=== PATIENT | female | born 1985 | race Caucasian/White ===

== ENCOUNTER → 2018-07-18 15:49 | Outpatient (CLI) | payer OTHER, MEDICAID, SELFPAY ==
[2018-07-18 17:53] LABS: Hematocrit 42.4 % (37-47); Hemoglobin 13.7 g/dl (12.0-15.0); Mean Corp Hgb Conc 32.3 g/gl (32-36); Mean Corpuscular Hgb 29.5 pg (27.0-32.0); Mean Corpuscular Volume 91.4 fL (81-99); Mean Platelet Vol. 10.2 fl (6.2-12.0); Platelet Count 249 K/mm3 (150-450); RBC Distribution Width CV 13.2 % (11.6-14.6); RBC Distribution Width SD 43.7 fl (35.1-43.9); Red Blood Count 4.64 M/mm3 (4.2-5.4); White Blood Count 6.8 K/mm3 (4.4-11.0)
[2018-07-18 18:19] LABS: Scan Indicated on CBC? Y/N NO
== END ==
PROVIDERS: Visit Provider Obstetrics & Gynecology
DX: N92.6 Irregular menstruation, unspecified (principal)
CPT/HCPCS: 85027

== ENCOUNTER 2019-12-05 22:45 | Outpatient (CLI) | payer MEDICAID, SELFPAY ==
[2019-12-05 23:10] VITALS: BMI 33.7
[2019-12-05 23:20] VITALS: BP 135/81; PULSE 80; TEMP 36.2; O2SAT 98
[2019-12-05 23:53] LABS: ROM Internal Control Test YES-OK TO RESULT pt. (Internal QC); ROM Patient Test Negative (Negative)
--- NOTE | 2019-12-07 07:55 | OB.TRI.NOTE ---
- Problem List (1) 38 weeks gestation of Status: Acute (2) Vaginal discharge during Status: Acute History of Present Illness Date of Service: 12/05/19 Reason For Visit: RULE OUT LABOR Date of Service: 12/05/19 Final NEEMA: 12/13/19 Gestational age: 39 Weeks and 1 Days History of Present Illness: Called in with leaking of fluid and contractions. No bleeding. Good movement. Allergies No Known Allergies Allergy (Verified 12/05/19 23:14) Laboratory Studies: Laboratory Tests 12/05/19 Range/Units 23:10 Vag Amniotic Fld Detect Negative (Negative) Physical Exam Vitals: Vital Signs Temp Pulse BP Pulse Ox 97.1 F L 80 135/81 H 98 12/05/19 23:20 12/05/19 23:20 12/05/19 23:20 12/05/19 23:20 NST - FHR Rate Baby A Baseline: 130 Variability:: Moderate Accelerations:: 15 x 15 Decelerations:: None NST Reactive:: Yes Uterine Activity:: Ctx q 4-5 min Impression/Plan NST reactive ROM negative Cervix unchanged after repeat exam Discharge home with return precautions
== END 2019-12-06 00:47 | disposition home or self-care (01) ==
LOC: WPOUT 22:56 → WP 22:57
PROVIDERS: Referring Provider Obstetrics & Gynecology; Visit Provider Obstetrics & Gynecology
DX: O26.893 Other specified pregnancy related conditions, third trimester (principal); N89.8 Other specified noninflammatory disorders of vagina; Z3A.38 38 weeks gestation of pregnancy
CPT/HCPCS: 84112

== ENCOUNTER → 2019-12-06 13:25 | Outpatient (CLI) | payer MEDICAID, SELFPAY ==
[2019-12-05 23:10] VITALS: BMI 33.7
== END ==
PROVIDERS: Referring Provider Obstetrics & Gynecology; Visit Provider Obstetrics & Gynecology
DX: Z11.59 Encounter for screening for other viral diseases (principal)
CPT/HCPCS: 87635; G2023; U0004

== ENCOUNTER 2019-12-10 07:00 | Inpatient (IN) | payer MEDICAID, SELFPAY ==
[2019-12-10] VITALS (37 sets, daily range): BP systolic 86–154; BP diastolic 48–101; PULSE 77–119; RESP 16–18; TEMP 36.1–36.4; O2SAT 93–100; BMI 34.0
[2019-12-10] MEDS: Lactated Ringers 1,000 ML 50 ML IV (08:00)
[2019-12-10] MEDS: Oxytocin 30 units/NS 500 ml 30 UNITS/500 ML IV.SOLN IV (08:15)
[2019-12-10 08:38] LABS: Absolute Lymphocyte Count 1.81 X10^3/uL (0.83-4.51); Absolute Neutrophil Count 8.9 X10^3/uL (2.0-7.7); Basophil# 0.05 X10^3/uL; Basophil% 0.4 % (0-1); Eosinophil# 0.11 X10^3/uL; Eosinophils% 0.9 % (0-5); Hematocrit 32.4 % (37-47); Hemoglobin 10.2 g/dL (12.0-15.0); Lymphocyte # 1.81 X10^3/ul (4.0); Lymphocyte % 15.2 % (19-41); Mean Corp Hgb Conc 31.5 g/dL (32-36); Mean Corpuscular Hgb 28.7 pg (27.0-32.0); Mean Corpuscular Volume 91.3 fL (81-99); Mean Platelet Vol. 9.7 fl (6.2-12.0); Monocyte# 0.86 X10^3/uL; Monocyte% 7.2 % (0-10); NRBC Flagged by Analyzer 0 % (0-5); Neutrophil # 8.92 X10^3/uL (2.7-7.7); Platelet Count 239 K/mm3 (150-450); RBC Distribution Width CV 14.7 % (11.6-14.6); RBC Distribution Width SD 48.8 fl (35.1-43.9); Red Blood Count 3.55 M/mm3 (4.2-5.4); White Blood Count 11.9 K/mm3 (4.4-11.0)
[2019-12-10] MEDS: Lactated Ringers 500 ML 999 ML IV (10:00)
--- NOTE | 2019-12-10 10:00 | HP.PCM_ITS ---
History Date of Admission: 12/10/19 Final NEEMA: 12/13/19 Gestational age: 39 Weeks and 4 Days History of this : This is a 34 year-old, G [], P [], at 39 weeks gestational age. Surgical History: Surgical History (This Medical Record has been edited. Action required.) Hx of appendectomy Z90.49 Hx of cholecystectomy Z90.49 S/P hernia surgery Z98.890, Z87.19 Allergies No Known Allergies Allergy (Verified 12/08/19 14:27) Home Medications: Home Medications Omeprazole 20 mg PO PRN PRN 12/10/19 Ondansetron [Zofran Odt] 4 mg PO Q8H PRN PRN 12/10/19 Smoking Status: Former smoker NST - FHR Rate Baby A Baseline: 145 Variability:: Moderate Accelerations:: 15 x 15 Decelerations:: Late Uterine Activity:: Irregular History Past Pregnancies: Past Pregnancies Delivery Date Name GA/ Weeks Outcome Route Wt Sex Labor Length Anesthesia Delivery Location Provider FOB Physical Exam Vitals: Vital Signs Pulse BP 82 138/84 H 12/10/19 08:44 12/10/19 08:44 General: Alert, Oriented x3 Abdomen: Soft, Non Tender, Non-Distended, Gravid Neurological: Cranial nerves II-XII grossly intact [employer]: Normal external genitalia Estimated gestational size: Appropriate for gestational size Presentation: Cephalic Cervix Dilation (cm): 4 - AROM clear fluid Station: -2 Effacement (%): 60 Assessment/Plan All Active Problems (This Medical Record has been edited. Action required.) 38 weeks gestation of (Acute) Vaginal discharge during (Acute) This is a 34 year-old, G4, P1203, at 39&4 weeks gestational age. Admit to L&D Induction for AMA & chtn - s/p AROM. On pitocin. Pain - epidural EFW - less than 4500g, patient with adequate pelvis GBS positive - pcn per protocol Routine care COVID negative
[2019-12-10] MEDS: fentaNYL-bupivacaine (epidural) 100 ML BAG EPIDURAL (10:43)
[2019-12-10] MEDS: Oxytocin 30 units/NS 500 ml 30 UNITS/500 ML IV.SOLN 334 UNITS IV (13:23)
--- NOTE | 2019-12-10 13:34 | PCM.OPRPT ---
Vaginal Delivery Maternal Presentation: Medically Indicated Induction Method of Induction: Pitocin, Amniotomy Medical Reason for Induction: Maternal Medical Condition: list: - Chronic hypertension Amniotic Membrane Rupture Type: Artificial Amniotic Fluid Description: Clear Final NEEMA: 12/13/19 Gestational age: 39 Weeks and 4 Days Date of Procedure: 12/10/19 Pre-Operative Diagnosis: (1) Chronic hypertension (2) AMA Post-Operative Diagnosis: Same Surgery/ Procedure Performed: Spontaneous Vaginal Delivery Type of Anesthesia: Epidural Description of Procedure: Patient prepped and draped in stirrups when C/C/+1. She pushed to deliver the head. Tight nuchal cord was clamped & cut. Head was gently guided to allow delivery of anterior and posterior shoulders. No excess traction placed on head. Body delivered and infant placed on maternal abdomen. Placenta delivered with gentle traction and good uterine tone obtained. Presentation: KUSHAL Placental Delivery Description: Spontaneous Placenta Disposition: [facility] Cord Vessel Description: 3 Vessels Cord Entanglement: Around neck x 1, tight Estimated Blood Loss: 250ml Infant A gender: Female - Atalie (1 minute): 8 (5 minute): 9 Episiotomy Description: None Laceration: None Medications given after delivery: IV Pitocin
[2019-12-10] MEDS: Ibuprofen 600 MG Tablet PO (17:29)
[2019-12-11] MEDS: Ibuprofen 600 MG Tablet PO ×3 (00:16→17:11)
[2019-12-11 00:17] VITALS: BP 146/94; PULSE 79; RESP 18; TEMP 36.2
[2019-12-11 04:00] VITALS: BP 124/79; PULSE 72; RESP 18; TEMP 36.3
[2019-12-11 08:12] VITALS: BP 138/89; PULSE 75; RESP 16; TEMP 36.4; O2SAT 98
--- NOTE | 2019-12-11 08:26 | PCM.PN.OB ---
Subjective: pain well controlled, average lochia, no N/V. Denies FERRARI or visual changes - Physical Exam Vitals/I&O's: Vital Signs Temp Pulse Resp BP Pulse Ox 97.6 F L 75 16 138/89 H 98 12/11/19 08:12 12/11/19 08:12 12/11/19 08:12 12/11/19 08:12 12/11/19 08:12 Oxygen Delivery Method Room Air Weight: 95.708 kg Body Mass Index (BMI) 34.0 Intake and Output for Last 24 Hours 12/09/19 12/10/19 12/11/19 23:59 23:59 23:59 Intake Total 2167.97 / 2167.97 Output Total 600 / 600 Balance 1567.97 / 1567.97 General: Alert, Cooperative, No apparent distress Laboratory Results 12/10/19 08:00: WBC 11.9 H, RBC 3.55 L, Hgb 10.2 L, Hct 32.4 L, MCV 91.3, MCH 28.7, MCHC 31.5 L, RDW Std Deviation 48.8 H, RDW Coeff of Kaylin 14.7 H, Plt Count 239, MPV 9.7, Immature Gran % (Auto) 1.300 H, Neut % (Auto) 75.0 H, Lymph % (Auto) 15.2 L, Cole % (Auto) 7.2, Eos % (Auto) 0.9, Baso % (Auto) 0.4, Absolute Neuts (auto) 8.9 H, Absolute Lymphs (auto) 1.81, Nucleated RBC % 0 12/10/19 08:00: Blood Type A POSITIVE, Antibody Screen NEGATIVE Current Medications Acetaminophen (Tylenol) 1,000 mg PO Q8H PRN PRN PRN Reason: Pain Score 1-3/10 Bisacodyl (Dulcolax) 10 mg RECTAL UD PRN PRN Reason: If no BM Dibucaine (Dibucaine) 1 applic TOPICAL TID PRN PRN; Protocol PRN Reason: Discomfort Hydrocortisone (Hytone) 1 applic TOPICAL TID PRN PRN; Protocol PRN Reason: Discomfort Ibuprofen (Motrin) 600 mg PO Q6H PRN PRN PRN Reason: Pain Score 1-3/10 Last Admin: 12/11/19 07:47 Dose: 600 mg Documented by: Methylergonovine Maleate (Methergine) 0.2 mg IM X1 PRN PRN Reason: Excess bleeding/uterine atony Ondansetron HCl (Zofran) 4 mg IV Q4H PRN PRN PRN Reason: Nausea Oxycodone HCl (Oxyir) 5 - 10 mg PO Q4H PRN PRN PRN Reason: Pain Score 4-10/10 Senna/Docusate Sodium (Senokot-S, Emmie-Colace) 1 - 2 tablet PO DAILY PRN PRN PRN Reason: Constipation Simethicone (Mylicon) 80 mg PO PCHS PRN PRN Reason: Indigestion/Stomach pain Sodium Chloride () 5 - 15 ml IV UD PRN PRN Reason: SALINE FLUSH Medical Necessity - Tobacco Use Smoking Status: Former smoker Assessment/Plan All Active Problems (This Medical Record has been edited. Action required.) 38 weeks gestation of (Acute) Vaginal discharge during (Acute) PPD#1 doing well gest HTN, BP stable, monitor for now no symptoms of preeclampsia w/ severe features and doing well likely d/c home tomorrow
[2019-12-11 12:54] VITALS: BP 123/86; PULSE 78; RESP 16; TEMP 36.4; O2SAT 96
[2019-12-11 19:20] VITALS: BP 143/84; PULSE 92; RESP 18; TEMP 36.6; O2SAT 98
[2019-12-12] MEDS: Ibuprofen 600 MG Tablet PO ×2 (00:35→07:44)
[2019-12-12 01:38] VITALS: BP 163/106; PULSE 82; RESP 18; TEMP 36.8
[2019-12-12 01:44] VITALS: BP 139/77; PULSE 84
[2019-12-12 03:08] VITALS: BP 137/80; PULSE 83
[2019-12-12 07:31] VITALS: BP 134/88; PULSE 80; RESP 16; TEMP 36.1
[2019-12-12] MEDS: Senna/Docusate Sodium 1 Tablet PO (07:44)
--- NOTE | 2019-12-12 08:19 | PCM.PN.OB ---
Subjective: Patient seen at bedside, doing well. Patient denies any headaches, visual changes. Patient reports good pain control. Mild lochia. Breast-feeding going well. Patient ready for DC home today. - Physical Exam Vitals/I&O's: Vital Signs Temp Pulse Resp BP Pulse Ox 97.0 F L 80 16 134/88 H 98 12/12/19 07:31 12/12/19 07:31 12/12/19 07:31 12/12/19 07:31 12/11/19 19:20 Oxygen Delivery Method Room Air Weight: 95.708 kg Body Mass Index (BMI) 34.0 Intake and Output for Last 24 Hours 12/10/19 12/11/19 12/12/19 23:59 23:59 23:59 Intake Total 2167.97 / 2167.97 Output Total 600 / 600 Balance 1567.97 / 1567.97 General: Alert, Oriented x3 Neurological: Cranial nerves II-XII grossly intact Current Medications Acetaminophen (Tylenol) 1,000 mg PO Q8H PRN PRN PRN Reason: Pain Score 1-3/10 Bisacodyl (Dulcolax) 10 mg RECTAL UD PRN PRN Reason: If no BM Dibucaine (Dibucaine) 1 applic TOPICAL TID PRN PRN; Protocol PRN Reason: Discomfort Hydrocortisone (Hytone) 1 applic TOPICAL TID PRN PRN; Protocol PRN Reason: Discomfort Ibuprofen (Motrin) 600 mg PO Q6H PRN PRN PRN Reason: Pain Score 1-3/10 Last Admin: 12/12/19 07:44 Dose: 600 mg Documented by: Methylergonovine Maleate (Methergine) 0.2 mg IM X1 PRN PRN Reason: Excess bleeding/uterine atony Ondansetron HCl (Zofran) 4 mg IV Q4H PRN PRN PRN Reason: Nausea Oxycodone HCl (Oxyir) 5 - 10 mg PO Q4H PRN PRN PRN Reason: Pain Score 4-10/10 Senna/Docusate Sodium (Senokot-S, Emmie-Colace) 1 - 2 tablet PO DAILY PRN PRN PRN Reason: Constipation Last Admin: 12/12/19 07:44 Dose: 2 tablet Documented by: Simethicone (Mylicon) 80 mg PO PCHS PRN PRN Reason: Indigestion/Stomach pain Sodium Chloride () 5 - 15 ml IV UD PRN PRN Reason: SALINE FLUSH Medical Necessity - Tobacco Use Smoking Status: Former smoker Assessment/Plan All Active Problems (This Medical Record has been edited. Action required.) 38 weeks gestation of (Acute) Vaginal discharge during (Acute) PPD#2 1) Bps well controlled 2) s/sx of pre e reviewed 3) dc home 4) follow up in office thursday 12/14 @ 11 am BP check
--- NOTE | 2019-12-12 08:21 | DCINST_ITS ---
Discharge Diet: No Restrictions Discharge Activity: Return to Normal Activity, May not drive while taking narcotic pain medications., May Shower May resume sexual activity in: 4-6 weeks Additional Activity Instructions:: Nothing in the vagina for 4-6 weeks. You may return to work/school in 6 weeks. Call your doctor if your incision/area has: Continuous Slow Oozing, Sudden Increased Bleeding, Increased Pain/ Swelling, Increased Redness, Foul Smelling Discharge Additional Instructions: If you experience any of the following, contact your healthcare provider. * Bleeding that soaks a pad every hour for 2 hours * Fever 100.4 or higher * Unrelieved incision or abdominal pain * Swelling, redness, discharge or bleeding from your incision or episiotomy site * Your incision begins to separate * Problems urinating (including inability to urinate or burning while urinating). * Visual changes * Severe headache * Flu-like symptoms * Pain or redness in one of both of your breasts * Pain, warmth, tenderness or swelling in your legs, especially the calf area * Frequent nausea and vomiting * Symptoms of depression or anxiety If you experience any of the following, call 911 or go to the nearest Emergency Room. * Chest pain * Problems breathing * Seizure activity * Partial or complete paralysis of a body part, slurred speech, weakness or drooping of the face, or a sudden inability to walk or hold your balance Allergies/Adverse Reactions: Allergies No Known Allergies Allergy (Verified 12/08/19 14:27) Medications to take at Discharge Ibuprofen [Motrin] 600 mg PO Q6H PRN PRN #30 tab 12/12/19 The following prescriptions were given: Ibuprofen [Motrin] 600 mg PO Q6H PRN PRN #30 tab PRN Reason: Pain Score 1-3/10 Transmission Status: Pending to [id number] When: Call to make an appointment with your doctor in 6 weeks. Follow up in office 12/15/19 @ 11am for BP check Primary Care Physician: Butch Klein MD [Primary Care Provider] - Test Results: Test results from this visit will be discussed in further detail at your follow- up appointment, if applicable.
--- NOTE | 2019-12-12 08:21 | PCM.DCVAG ---
Discharge Diet: No Restrictions Discharge Activity: Return to Normal Activity, May not drive while taking narcotic pain medications., May Shower May resume sexual activity in: 4-6 weeks Additional Activity Instructions:: Nothing in the vagina for 4-6 weeks. You may return to work/school in 6 weeks. Call your doctor if your incision/area has: Continuous Slow Oozing, Sudden Increased Bleeding, Increased Pain/ Swelling, Increased Redness, Foul Smelling Discharge Additional Instructions: If you experience any of the following, contact your healthcare provider. Bleeding that soaks a pad every hour for 2 hours Fever 100.4 or higher Unrelieved incision or abdominal pain Swelling, redness, discharge or bleeding from your incision or episiotomy site Your incision begins to separate Problems urinating (including inability to urinate or burning while urinating). Visual changes Severe headache Flu-like symptoms Pain or redness in one of both of your breasts Pain, warmth, tenderness or swelling in your legs, especially the calf area Frequent nausea and vomiting Symptoms of depression or anxiety If you experience any of the following, call 911 or go to the nearest Emergency Room. Chest pain Problems breathing Seizure activity Partial or complete paralysis of a body part, slurred speech, weakness or drooping of the face, or a sudden inability to walk or hold your balance Allergies/Adverse Reactions: Allergies No Known Allergies Allergy (Verified 12/08/19 14:27) Medications to take at Discharge Ibuprofen [Motrin] 600 mg PO Q6H PRN PRN #30 tab 12/12/19 The following prescriptions were given: Ibuprofen [Motrin] 600 mg PO Q6H PRN PRN #30 tab PRN Reason: Pain Score 1-3/10 Transmission Status: Pending to [id number] When: Call to make an appointment with your doctor in 6 weeks. Follow up in office 12/15/19 @ 11am for BP check Primary Care Physician: Butch Klein MD [Primary Care Provider] - Test Results: Test results from this visit will be discussed in further detail at your follow-up appointment, if applicable.
[2019-12-12] MEDS: Etonogestrel 68 MG IMPLANT SQ (13:33)
[2019-12-12 13:35] VITALS: BP 161/99; PULSE 90; RESP 16; TEMP 36.6
--- NOTE | 2019-12-12 14:10 | PCM.PN.BLA ---
Progress Note Patient seen at bedside. Requests Nexplanon insertion prior to d/c home. Patient signed consent with this provider. Had Nexplanon in the past with no issues. Patient identified by name, date and procedure to be completed. Nexplanon inserted in right arm (per request due to past one in left arm) Patient tolerated procedure well. STROKE Vital Signs/Narrative: Vital Signs Temp Pulse Resp BP 12/12/19 13:35 97.8 F 90 16 161/99 H
== END 2019-12-12 17:30 | disposition home or self-care (01) | DRG 560 ==
PROVIDERS: Admitting Provider Obstetrics & Gynecology; PCP Family Medicine; Visit Provider Obstetrics & Gynecology
DX: O13.4 Gestational [pregnancy-induced] hypertension without significant proteinuria, complicating childbirth (principal); Z3A.39 39 weeks gestation of pregnancy; Z37.0 Single live birth; Z87.891 Personal history of nicotine dependence; O99.824 Streptococcus B carrier state complicating childbirth; O69.1XX0 Labor and delivery complicated by cord around neck, with compression, not applicable or unspecified; Z30.017 Encounter for initial prescription of implantable subdermal contraceptive
CPT/HCPCS: 59050; 85025; 86850; 86900; 86901; 99218; J7120; G0378